=== PATIENT | male | born 1950 | race Caucasian/White ===

== ENCOUNTER 2019-09-20 01:25 | Outpatient (CLI) | payer MEDICARE, BC, SELFPAY ==
[2019-09-20 16:42] LABS: SARS-CoV-2 RNA PCR Negative
== END 2019-09-20 01:26 | disposition home or self-care (01) ==
LOC: ANHCOVIDDT 01:25
PROVIDERS: PCP Family Medicine; Visit Provider Internal Medicine Gastroenterology
DX: Z01.812 Encounter for preprocedural laboratory examination (principal); Z20.828 Contact with and (suspected) exposure to other viral communicable diseases
CPT/HCPCS: 87635; C9803; U0003

== ENCOUNTER 2019-09-23 01:17 | Day surgery (SDC) | payer MEDICARE, BC, SELFPAY ==
[2019-09-17 12:27] VITALS: BMI 26.0
[2019-09-23 06:32] VITALS: BMI 26.2
[2019-09-23 06:36] VITALS: BP 180/117; PULSE 69; RESP 16; TEMP 36.9; O2SAT 99
[2019-09-23] MEDS: LACTATED RINGERS 1,000 ML 150 ML IV CONT (06:44)
--- NOTE | 2019-09-23 06:48 | WPDANESEPPF ---
Anes - Initial Pre Proc Eval Procedure: Operation Date: 09/23/19 08:00 Proposed Procedures p Screening Colonoscopy - Prabhu Mendoza MD Date/Time: 09/23/19 06:48 Surgeon: Prabhu Mendoza MD Pre Op Diagnosis: Neoplasm Screening Patient Data Age: 69 Gender: M Height: 5 ft 9 in Weight: 80.6 kg Last Vital Signs Temp 36.9 C 09/23/19 06:36 Pulse 69 09/23/19 06:36 Resp 16 09/23/19 06:36 BP 180/117 H 09/23/19 06:36 Pulse Ox 99 09/23/19 06:36 Allergies Allergy/AdvReac Type Severity Reaction Status Date / Time Sulfa (Sulfonamide Allergy Unknown lip Verified 09/23/19 06:31 Antibiotics) swelling shellfish derived Allergy tingle in Verified 09/23/19 06:31 mouth and throat Home Medications Medication Instructions Recorded Confirmed Type albuterol sulfate 90 mcg/actuation 2 puff INHALATION Q4-6H PRN gm 07/28/19 09/17/19 History aerosol inhaler aspirin 81 mg tablet,delayed 81 mg PO DAILY 07/28/19 09/17/19 History release clonazepam 0.5 mg tablet 0.5 mg PO DAILY 07/28/19 09/17/19 History cyanocobalamin (vitamin B-12) 500 500 mcg PO DAILY 07/28/19 09/17/19 History mcg tablet desvenlafaxine succinate 100 mg 100 mg PO DAILY 07/28/19 09/17/19 History tablet,extended release 24 hr mirtazapine 30 mg tablet 30 mg PO DAILY 07/28/19 09/17/19 History niacin 500 mg tablet 500 mg PO DAILY 07/28/19 09/17/19 History Patient hx anesthesia problems: none Family hx anesthesia problems: none PMFSH Past Medical History Medical History Allergies Anxiety Asthma Depression Surgical History Surgical History H/O vasectomy Family History Family History Mother Cerebrovascular accident Father Malignant neoplasm of prostate Bladder cancer Grandparent Breast cancer Social History Social History Smoking status: Never smoker Alcohol intake: never Substance use: never Anes - Eval Final PreProcedure Day of Procedure 09/23/19 06:48 Patient weight: overweight Heart: regular rate and rhythm Lungs: clear to auscultation Airway: Mallampati scale class II Neurological: alert and oriented ASA classification: II Emergent: no Anesthetic plan: proceed Anesthesia type and monitoring: general GIVS and standard monitoring Informed Consent: The patient's anesthetic plan and its attendant risks and benefits were discussed with the patient/family/POA. Questions were solicited and answers provided to the satisfaction of the patient/family/POA.
--- NOTE | 2019-09-23 07:38 | PM.HPGS ---
History of Present Illness History of Present Illness Consent: Risks, benefits, and alternatives have been discussed and questions answered. Patient agrees to proceed with procedure. Chief complaint: Neoplasm Screening Narrative: Jd Stovall is a 69 year old male here for screening colonoscopy, had polyps previously. Review of Systems Constitutional: Constitutional: Denies headache(s) and Denies weakness Eyes: Eyes: Denies blurry vision ENT: Reports Normal hearing present, Denies headache(s) and Denies neck pain Cardiovascular: Cardiovascular: Denies chest pain and Denies dyspnea Respiratory: Respiratory: Denies dyspnea Gastrointestinal: Gastrointestinal: Reports no additional gastrointestinal complaints Genitourinary: Genitourinary: Denies dysuria Musculoskeletal: Musculoskeletal: Denies neck pain Integumentary/Breasts: Skin/Breast: Denies dry skin Neurologic: Reports Normal hearing present, Denies headache(s) and Denies weakness Psychiatric: Psychiatric: Denies anxiety Endocrine: Endocrine: Denies change in body appearance Hematologic/Lymphatic: Hematologic/Lymphatic: Denies easy bleeding Allergic/Immunologic: Allergic/Immunologic: Denies urticaria PMFSH Past Medical History Medical History Allergies Anxiety Asthma Depression Surgical History Surgical History H/O vasectomy Family History Family History Mother Cerebrovascular accident Father Malignant neoplasm of prostate Bladder cancer Grandparent Breast cancer Social History Social History Smoking status: Never smoker Alcohol intake: never Substance use: never Meds Home Medications and Allergies Home Medications Medication Instructions Recorded Confirmed Type albuterol sulfate 90 mcg/actuation 2 puff INHALATION Q4-6H PRN gm 07/28/19 09/17/19 History aerosol inhaler aspirin 81 mg tablet,delayed 81 mg PO DAILY 07/28/19 09/17/19 History release clonazepam 0.5 mg tablet 0.5 mg PO DAILY 07/28/19 09/17/19 History cyanocobalamin (vitamin B-12) 500 500 mcg PO DAILY 07/28/19 09/17/19 History mcg tablet desvenlafaxine succinate 100 mg 100 mg PO DAILY 07/28/19 09/17/19 History tablet,extended release 24 hr mirtazapine 30 mg tablet 30 mg PO DAILY 07/28/19 09/17/19 History niacin 500 mg tablet 500 mg PO DAILY 07/28/19 09/17/19 History Allergies Allergy/AdvReac Type Severity Reaction Status Date / Time Sulfa (Sulfonamide Allergy Unknown lip Verified 09/23/19 06:31 Antibiotics) swelling shellfish derived Allergy tingle in Verified 09/23/19 06:31 mouth and throat Vital Signs Vital Signs - 24 hr 09/23/19 06:36 Temperature 98.5 F Pulse Rate 69 Respiratory Rate 16 Blood Pressure 180/117 H Pulse Oximetry 99 Exam Const: General: comfortable and no acute distress HENMT: General nose exam: Normal nares present Eyes: General: appearance normal, both eyes and all related structures Neck: Neck: no JVD Resp: Auscultation: clear to auscultation bilaterally Cardio: Rate: regular rate Rhythm: regular rhythm GI: Inspection: non-distended GI Palp: Yes Soft to palpation Skin: General skin exam: normal color Neuro: General: gait normal Speech: normal speech Extrem: General: normal to inspection Psych: Mental Status: mental status grossly normal Assessment and Plan Assessment and plan (1) Hx of colonic polyp: Code(s): Z86.010 - Personal history of colonic polyps Status: Acute Assessment and Plan: will proceed with colonoscopy (2) Asthma: Code(s): J45.909 - Unspecified asthma, uncomplicated Status: Acute
[2019-09-23 08:19] VITALS: BP 137/77; PULSE 63; RESP 20; O2SAT 100
[2019-09-23 08:21] VITALS: BP 137/77; PULSE 63; RESP 20; O2SAT 100
[2019-09-23 08:29] VITALS: BP 135/73; PULSE 56; RESP 20; O2SAT 100
[2019-09-23 08:39] VITALS: BP 136/77; PULSE 55; RESP 18; O2SAT 100
== END 2019-09-23 08:45 | disposition home or self-care (01) ==
PROVIDERS: PCP Family Medicine; Visit Provider Internal Medicine Gastroenterology
PROC: 0DJD8ZZ Inspection of Lower Intestinal Tract, Via Natural or Artificial Opening Endoscopic (ICD-10-PCS; CPT 45378; principal; 2019-09-23 08:00)
DX: Z12.11 Encounter for screening for malignant neoplasm of colon (principal); D12.0 Benign neoplasm of cecum; D12.2 Benign neoplasm of ascending colon; D12.3 Benign neoplasm of transverse colon; D12.4 Benign neoplasm of descending colon; J45.909 Unspecified asthma, uncomplicated; F32.9 Major depressive disorder, single episode, unspecified; Z79.82 Long term (current) use of aspirin
CPT/HCPCS: 45385; 88305; J2704; J7120

== ENCOUNTER 2021-08-25 10:51 | Outpatient (CLI) | payer MEDICARE, BC, SELFPAY ==
[2021-08-25 18:48] LABS: Hematocrit 41.6 % (42.0-52.0); Hemoglobin 13.9 g/dL (14.0-18.0); Mean Corpuscular HGB Conc 33.4 g/dl (32-36); Mean Corpuscular Hemoglobin 32.3 pg (26-34); Mean Corpuscular Volume 96.7 fl (80-100); Mean Platelet Volume 11.1 fl (7.4-10.4); Platelet Count Result 186 k/mm3 (150-375); Red Cell Distribution Width 13.1 % (11.5-14.5); White Blood Count 7.4 K/mm3 (4.5-10.0)
[2021-08-25 19:45] LABS: Alanine Aminotransferase 22 U/L (6-50); Albumin Level 4.2 g/dL (3.5-5.1); Alkaline Phosphatase 89 U/L (38-126); Anion Gap 9 mmol/L (8-16); Aspartate Amino Transferase 34 U/L (17-59); Bilirubin,Total 0.4 mg/dL (0.2-1.3); Blood Urea Nitrogen 21 mg/dL (9-20); Calcium 8.5 mg/dL (8.4-10.2); Carbon Dioxide 26 mmol/L (22-30); Chloride 104 mmol/L (98-107); Cholesterol 223 mg/dL (0-200); Estimated Glomerular Filt Rate > 60; Glucose 98 mg/dL (65-110); HDL Direct 34 mg/dL; Potassium 4.1 mmol/L (3.4-5.0); Sodium 139 mmol/L (137-145); Triglycerides 330 mg/dL (<150)
[2021-08-25 19:57] LABS: LDL Cholesterol Direct 125 mg/dL
[2021-08-25 20:17] LABS: Prostate Specific Antigen 1.6 ng/mL (< OR = 4.0)
== END 2021-08-25 10:52 | disposition home or self-care (01) ==
PROVIDERS: PCP Family Medicine; Visit Provider Family Medicine
DX: F32.9 Major depressive disorder, single episode, unspecified (principal); F41.9 Anxiety disorder, unspecified; J45.909 Unspecified asthma, uncomplicated; Z79.899 Other long term (current) drug therapy; T78.40XA Allergy, unspecified, initial encounter; Z12.5 Encounter for screening for malignant neoplasm of prostate
CPT/HCPCS: 36415; 80053; 80061; 84153; 85027; G0103

== ENCOUNTER 2021-11-23 00:19 | Day surgery (SDC) | payer MEDICARE, OTHER, SELFPAY ==
[2021-11-14 13:38] VITALS: BMI 27.3
[2021-11-23 06:13] VITALS: PULSE 70; RESP 16; TEMP 36.6; O2SAT 99; BMI 27.4
[2021-11-23] MEDS: LACTATED RINGERS 1,000 ML 150 ML IV CONT (06:25)
--- NOTE | 2021-11-23 07:25 | WPDANESEPPF ---
Anes - Initial Pre Proc Eval Procedure: Operation Date: 11/23/21 07:30 Proposed Procedures p Screening Colonoscopy - Prabhu Mendoza MD Date/Time: 11/23/21 07:25 Surgeon: Prabhu Mendoza MD Pre Op Diagnosis: hx colon polyps Patient Data Age: 71 Gender: M Height: 1.75 m Weight: 84.3 kg Last Vital Signs Temp 97.9 F 11/23/21 06:13 Pulse 70 11/23/21 06:13 Resp 16 11/23/21 06:13 Pulse Ox 99 11/23/21 06:13 O2 Del Method Room Air 11/23/21 06:13 Allergies Allergy/AdvReac Type Severity Reaction Status Date / Time Sulfa (Sulfonamide Allergy Unknown lip Verified 11/23/21 06:12 Antibiotics) swelling shellfish derived Allergy tingle in Verified 11/23/21 06:12 mouth and throat Home Medications Medication Instructions Recorded Confirmed Type albuterol sulfate 90 mcg/actuation 2 puff inhalation Q4-6H PRN 07/28/19 11/23/21 History aerosol inhaler (ProAir HFA) Shortness Of Breath aspirin 81 mg tablet,delayed 81 mg PO DAILY 07/28/19 11/23/21 History release (Adult Aspirin Regimen) clonazepam 0.5 mg tablet (Klonopin) 0.5 mg PO DAILY 07/28/19 11/23/21 History mirtazapine 30 mg tablet 30 mg PO DAILY 07/28/19 11/23/21 History Ltheanine 100 mg BYMOUTH sleep 08/25/21 11/23/21 History Zquill 1 caplet [facility] sleep 08/25/21 11/23/21 History desvenlafaxine succinate 100 mg 100 mg PO DAILY 08/25/21 11/23/21 History tablet,extended release 24 hr (Pristiq) fluticasone propionate 50 2 spray intranasal DAILY 08/25/21 11/23/21 History mcg/actuation nasal spray,suspension magnesium hydroxide 400 mg/5 mL 400 mg PO QHS 08/25/21 11/23/21 History oral suspension glycine 500 mg capsule 2,000 mg PO 11/14/21 11/23/21 History multivitamin 1 tablet PO DAILY 08/08/22 08/17/22 History zolpidem 5 mg tablet 5 mg PO PRN 11/14/21 11/23/21 History Patient hx anesthesia problems: none Family hx anesthesia problems: none Results Review: All pre-operative results and documents have been reviewed as part of the pre-operative evaluation. [facility] Past Medical History Medical History (Updated 08/28/21 @ 23:31 by Tim Tomlin MD) Allergies Anxiety Asthma Depression Surgical History Surgical History (System 12/14/20 @ 09:44 by Carol Luque) H/O vasectomy Family History Family History (System 12/14/20 @ 09:44 by Carol Luque) Mother Cerebrovascular accident Father Malignant neoplasm of prostate Bladder cancer Grandparent Breast cancer Mother Hypertension Cerebrovascular accident Carcinoma of colon Father Family history of malignant neoplasm of urinary bladder Social History Social History (System 12/14/20 @ 09:44 by Carol Luque) Smoking status: Current every day smoker Tobacco type: cigars Alcohol intake: never Substance use: never Substance use type: does not use Living arrangements: with family Spiritual care concerns: No Anes - Eval Final PreProcedure Day of Procedure 11/23/21 07:25 Patient weight: normal Heart: regular rate and rhythm Lungs: clear to auscultation Airway: Mallampati scale class II Neurological: alert and oriented Last oral intake: >/= 8 hours ASA classification: II Emergent: no Anesthetic plan: proceed Anesthesia type and monitoring: general GIVS and standard monitoring Results Review: All pre-operative results and documents have been reviewed as part of the pre-operative evaluation. Informed Consent: The patient's anesthetic plan and its attendant risks and benefits were discussed with the patient/family/POA. Questions were solicited and answers provided to the satisfaction of the patient/family/POA.
--- NOTE | 2021-11-23 07:31 | PM.HPGS ---
History of Present Illness History of Present Illness Consent: Risks, benefits, and alternatives have been discussed and questions answered. Patient agrees to proceed with procedure. Chief complaint: hx colon polyps Narrative: Jd Stovall is a 71 year old male with several colon polyps removed in 2019 Review of Systems Constitutional: Constitutional: Denies headache(s) and Denies weakness Eyes: Eyes: Denies blurry vision ENT: Reports Normal hearing present, Denies headache(s) and Denies neck pain Cardiovascular: Cardiovascular: Denies chest pain and Denies dyspnea Respiratory: Respiratory: Denies dyspnea Gastrointestinal: Gastrointestinal: Reports no additional gastrointestinal complaints Genitourinary: Genitourinary: Denies dysuria Musculoskeletal: Musculoskeletal: Denies neck pain Integumentary/Breasts: Skin/Breast: Denies dry skin Neurologic: Reports Normal hearing present, Denies headache(s) and Denies weakness Psychiatric: Psychiatric: Denies anxiety Endocrine: Endocrine: Denies change in body appearance Hematologic/Lymphatic: Hematologic/Lymphatic: Denies easy bleeding Allergic/Immunologic: Allergic/Immunologic: Denies urticaria PMFSH Past Medical History Medical History (Updated 08/28/21 @ 23:31 by Tim Tomlin MD) Allergies Anxiety Asthma Depression Surgical History Surgical History (System 12/14/20 @ 09:44 by Carol Luque) H/O vasectomy Family History Family History (System 12/14/20 @ 09:44 by Carol Luque) Mother Cerebrovascular accident Father Malignant neoplasm of prostate Bladder cancer Grandparent Breast cancer Mother Hypertension Cerebrovascular accident Carcinoma of colon Father Family history of malignant neoplasm of urinary bladder Social History Social History (System 12/14/20 @ 09:44 by Carol Luque) Smoking status: Current every day smoker Tobacco type: cigars Alcohol intake: never Substance use: never Substance use type: does not use Living arrangements: with family Spiritual care concerns: No Meds Home Medications and Allergies Home Medications Medication Instructions Recorded Confirmed Type albuterol sulfate 90 mcg/actuation 2 puff inhalation Q4-6H PRN 07/28/19 11/23/21 History aerosol inhaler (ProAir HFA) Shortness Of Breath aspirin 81 mg tablet,delayed 81 mg PO DAILY 07/28/19 11/23/21 History release (Adult Aspirin Regimen) clonazepam 0.5 mg tablet (Klonopin) 0.5 mg PO DAILY 07/28/19 11/23/21 History mirtazapine 30 mg tablet 30 mg PO DAILY 07/28/19 11/23/21 History Ltheanine 100 mg BYMOUTH sleep 08/25/21 11/23/21 History Zquill 1 caplet [facility] sleep 08/25/21 11/23/21 History desvenlafaxine succinate 100 mg 100 mg PO DAILY 08/25/21 11/23/21 History tablet,extended release 24 hr (Pristiq) fluticasone propionate 50 2 spray intranasal DAILY 08/25/21 11/23/21 History mcg/actuation nasal spray,suspension magnesium hydroxide 400 mg/5 mL 400 mg PO QHS 08/25/21 11/23/21 History oral suspension glycine 500 mg capsule 2,000 mg PO HS 11/14/21 11/23/21 History multivitamin 1 tablet PO DAILY 11/14/21 11/23/21 History zolpidem 5 mg tablet 5 mg PO PRN 11/14/21 11/23/21 History Allergies Allergy/AdvReac Type Severity Reaction Status Date / Time Sulfa (Sulfonamide Allergy Unknown lip Verified 11/23/21 06:12 Antibiotics) swelling shellfish derived Allergy tingle in Verified 11/23/21 06:12 mouth and throat Vital Signs Vital Signs - 24 hr 11/23/21 06:13 Temperature 97.9 F Pulse Rate 70 Respiratory Rate 16 Pulse Oximetry 99 Oxygen Delivery Room Air Exam Const: General: comfortable and no acute distress HENMT: General nose exam: Normal nares present Eyes: General: appearance normal, both eyes and all related structures Neck: Neck: no JVD Resp: Auscultation: clear to auscultation bilaterally Cardio: Rate: regular rate
[2021-11-23 08:06] VITALS: BP 112/66; PULSE 64; RESP 15; O2SAT 99
[2021-11-23 08:16] VITALS: BP 127/79; PULSE 58; RESP 16; O2SAT 99
[2021-11-23 08:26] VITALS: BP 136/90; PULSE 58; RESP 15; O2SAT 100
== END 2021-11-23 08:34 | disposition home or self-care (01) ==
PROVIDERS: PCP Family Medicine; Visit Provider Internal Medicine Gastroenterology
PROC: 0DJD8ZZ Inspection of Lower Intestinal Tract, Via Natural or Artificial Opening Endoscopic (ICD-10-PCS; CPT 45378; principal; 2021-11-23 07:30)
DX: Z12.11 Encounter for screening for malignant neoplasm of colon (principal); D12.2 Benign neoplasm of ascending colon; D12.3 Benign neoplasm of transverse colon; K64.8 Other hemorrhoids; J45.909 Unspecified asthma, uncomplicated; F41.9 Anxiety disorder, unspecified; F32.A Depression, unspecified; F17.290 Nicotine dependence, other tobacco product, uncomplicated; Z79.51 Long term (current) use of inhaled steroids; Z79.82 Long term (current) use of aspirin
CPT/HCPCS: 45380; 45385; 45381; 88305; J2704; J7120

== ENCOUNTER 2021-12-14 08:13 | Outpatient (CLI) | payer MEDICARE, OTHER, SELFPAY ==
[2021-12-14 19:22] LABS: Iron 52 ug/dL (49-181)
[2021-12-14 19:37] LABS: Percent Iron Saturation 12 % (20-50)
[2021-12-14 19:41] LABS: Basophils Absolute Auto 0.1 K/mm3 (0.0-0.1); Basophils Percent Auto 1.4 % (0.2-1.2); Eosinophils Absolute Auto 0.2 K/mm3 (0-0.3); Eosinophils Percent Auto 2.9 % (0-4.4); Hematocrit 38.4 % (42.0-52.0); Hemoglobin 12.1 g/dL (14.0-18.0); Immature Granulocyte Absolute 0.02 K/mm3 (0.00-0.031); Immature Granulocyte Percent A 0.3 % (0-0.5); Lymphocytes Absolute Auto 1.86 K/mm3 (0.9-3.2); Lymphocytes Percent Auto 28.7 % (18.3-44.2); Mean Corpuscular HGB Conc 31.5 g/dl (32-36); Mean Corpuscular Hemoglobin 31.1 pg (26-34); Mean Corpuscular Volume 98.7 fl (80-100); Mean Platelet Volume 10.9 fl (7.4-10.4); Monocytes Absolute Auto 0.7 K/mm3 (0.1-0.6); Monocytes Percent Auto 11.1 % (2.6-8.5); Neutrophils Absolute Auto 3.6 K/mm3 (1.3-6.7); Neutrophils Percent Auto 55.6 % (45.5-73.1); Platelet Count Result 214 k/mm3 (150-375); Red Blood Count 3.89 M/mm3 (4.6-6.20); Red Cell Distribution Width 13.4 % (11.5-14.5); White Blood Count 6.5 K/mm3 (4.5-10.0)
[2021-12-14 20:01] LABS: Folic Acid 18.1 ng/mL (2.76->20)
== END 2021-12-14 08:14 | disposition home or self-care (01) ==
LOC: ANHBWCLAB 08:17
PROVIDERS: PCP Family Medicine; Visit Provider Family Medicine
DX: D64.9 Anemia, unspecified (principal)
CPT/HCPCS: 36415; 82607; 82746; 83540; 83550; 85025

== ENCOUNTER 2022-03-10 07:29 | Outpatient (CLI) | payer MEDICARE, OTHER, SELFPAY ==
[2022-03-10 19:05] LABS: Basophils Absolute Auto 0.1 K/mm3 (0.0-0.1); Basophils Percent Auto 0.7 % (0.2-1.2); Eosinophils Absolute Auto 0.2 K/mm3 (0-0.3); Eosinophils Percent Auto 2.7 % (0-4.4); Hematocrit 48.5 % (42.0-52.0); Hemoglobin 15.7 g/dL (14.0-18.0); Immature Granulocyte Absolute 0.02 K/mm3 (0.00-0.031); Immature Granulocyte Percent A 0.3 % (0-0.5); Lymphocytes Absolute Auto 1.84 K/mm3 (0.9-3.2); Lymphocytes Percent Auto 26.2 % (18.3-44.2); Mean Corpuscular HGB Conc 32.4 g/dl (32-36); Mean Corpuscular Hemoglobin 30.2 pg (26-34); Mean Corpuscular Volume 93.3 fl (80-100); Mean Platelet Volume 10.8 fl (7.4-10.4); Monocytes Absolute Auto 0.6 K/mm3 (0.1-0.6); Monocytes Percent Auto 8.4 % (2.6-8.5); Neutrophils Absolute Auto 4.3 K/mm3 (1.3-6.7); Neutrophils Percent Auto 61.7 % (45.5-73.1); Platelet Count Result 194 k/mm3 (150-375); Red Cell Distribution Width 14.2 % (11.5-14.5)
== END 2022-03-10 07:30 | disposition home or self-care (01) ==
PROVIDERS: PCP Family Medicine; Visit Provider Family Medicine
DX: T78.40XA Allergy, unspecified, initial encounter (principal)
CPT/HCPCS: 36415; 85025

== ENCOUNTER 2022-08-28 07:33 | Outpatient (CLI) | payer MEDICARE, OTHER, SELFPAY ==
[2022-08-28 18:44] LABS: Basophils Absolute Auto 0.1 K/mm3 (0.0-0.1); Basophils Percent Auto 0.9 % (0.2-1.2); Eosinophils Absolute Auto 0.2 K/mm3 (0-0.3); Eosinophils Percent Auto 3.5 % (0-4.4); Hematocrit 46.5 % (42.0-52.0); Hemoglobin 15.1 g/dL (14.0-18.0); Immature Granulocyte Absolute 0.02 K/mm3 (0.00-0.031); Immature Granulocyte Percent A 0.4 % (0-0.5); Lymphocytes Absolute Auto 1.47 K/mm3 (0.9-3.2); Mean Corpuscular HGB Conc 32.5 g/dl (32-36); Mean Corpuscular Volume 98.5 fl (80-100); Mean Platelet Volume 10.7 fl (7.4-10.4); Monocytes Absolute Auto 0.5 K/mm3 (0.1-0.6); Monocytes Percent Auto 9.5 % (2.6-8.5); Neutrophils Absolute Auto 3.4 K/mm3 (1.3-6.7); Neutrophils Percent Auto 59.7 % (45.5-73.1); Platelet Count Result 179 k/mm3 (150-375); Red Blood Count 4.72 M/mm3 (4.6-6.20); Red Cell Distribution Width 12.7 % (11.5-14.5); White Blood Count 5.7 K/mm3 (4.5-10.0)
[2022-08-28 19:12] LABS: Alanine Aminotransferase 32 U/L (6-50); Albumin Level 4.6 g/dL (3.5-5.1); Alkaline Phosphatase 80 U/L (38-126); Anion Gap 7 mmol/L (8-16); Aspartate Amino Transferase 65 U/L (17-59); Blood Urea Nitrogen 19 mg/dL (9-20); Calcium 8.9 mg/dL (8.4-10.2); Carbon Dioxide 31 mmol/L (22-30); Chloride 102 mmol/L (98-107); Cholesterol 254 mg/dL (0-200); Estimated Glomerular Filt Rate > 60; Glucose 88 mg/dL (65-110); HDL Direct 37 mg/dL; Potassium 4.1 mmol/L (3.4-5.0); Sodium 140 mmol/L (137-145); Triglycerides 208 mg/dL (<150)
[2022-08-28 19:17] LABS: Appearance Urine Clear (Clear); Bacteria Urine None Seen /hpf; Bilirubin Urine Negative (Negative); Blood Urine Negative (Negative); Color Urine Yellow (Yellow); Glucose Urine UA Negative (Negative); Ketones Urine Negative (Negative); Leukocyte Esterase Ur Negative LEU/UL (NEGATIVE); Nitrate Urine Negative (Negative); Non Pathogenic Casts 0-2; Protein Urine Trace mg/dL (Negative); RBC Urine 0-2 /hpf (0-2); Specific Grav Ur 1.018 (1.001-1.035); Squamous Epithelial Cell Urine None seen /hpf (Few); Urobilinogen Urine 0.2 mg/dL (<2.0); WBC Urine 0-5 /hpf (0-3)
[2022-08-28 19:22] LABS: LDL Cholesterol Direct 150 mg/dL
[2022-08-28 19:25] LABS: Add Urine Microscopic? YES
[2022-08-28 19:34] LABS: Prostate Specific Antigen 2.3 ng/mL (< OR = 4.0)
== END 2022-08-28 07:34 | disposition home or self-care (01) ==
PROVIDERS: PCP Family Medicine; Visit Provider Nurse Practitioner
DX: T78.40XA Allergy, unspecified, initial encounter (principal); D64.9 Anemia, unspecified; Z79.899 Other long term (current) drug therapy; Z12.5 Encounter for screening for malignant neoplasm of prostate; F41.9 Anxiety disorder, unspecified; J45.909 Unspecified asthma, uncomplicated; R35.0 Frequency of micturition
CPT/HCPCS: 36415; 80053; 80061; 81001; 84153; 85025; G0103

== ENCOUNTER 2022-09-13 00:39 | Day surgery (SDC) | payer MEDICARE, OTHER, SELFPAY ==
[2022-09-06 14:08] VITALS: BMI 26.5
[2022-09-13 06:26] VITALS: BP 169/86; PULSE 74; RESP 18; TEMP 36.2; O2SAT 100
[2022-09-13] MEDS: LACTATED RINGERS 1,000 ML 150 ML IV CONT (06:40)
--- NOTE | 2022-09-13 07:10 | WPDANESEPPF ---
Anes - Initial Pre Proc Eval Procedure: Operation Date: 09/13/22 07:30 Proposed Procedures p Colonoscopy - Prabhu Mendoza MD Date/Time: 09/13/22 07:10 Surgeon: Prabhu Mendoza MD Pre Op Diagnosis: hx colon polyps Patient Data Age: 72 Gender: M Height: 1.78 m Weight: 85.9 kg Last Vital Signs Temp 36.2 C L 09/13/22 06:26 Pulse 74 09/13/22 06:26 Resp 18 09/13/22 06:26 BP 169/86 H 09/13/22 06:26 Pulse Ox 100 09/13/22 06:26 O2 Del Method Room Air 09/13/22 06:26 Allergies Allergy/AdvReac Type Severity Reaction Status Date / Time Sulfa (Sulfonamide Allergy Unknown lip Verified 09/13/22 06:24 Antibiotics) swelling shellfish derived Allergy tingle in Verified 09/13/22 06:24 mouth and throat Home Medications Medication Instructions Recorded Confirmed Type albuterol sulfate 90 mcg/actuation 2 puff inhalation Q4-6H PRN 07/28/19 09/06/22 History aerosol inhaler (ProAir HFA) Shortness Of Breath aspirin 81 mg tablet,delayed 81 mg PO DAILY 07/28/19 09/06/22 History release (Adult Aspirin Regimen) clonazepam 0.5 mg tablet (Klonopin) 0.5 mg PO DAILY 07/28/19 09/06/22 History mirtazapine 30 mg tablet (Remeron) 30 mg PO DAILY 07/28/19 09/06/22 History Ltheanine 100 mg BYMOUTH HS sleep 08/25/21 09/06/22 History desvenlafaxine succinate 100 mg 100 mg PO DAILY 08/25/21 09/06/22 History tablet,extended release 24 hr (Pristiq) fluticasone propionate 50 2 spray intranasal DAILY 08/25/21 09/06/22 History mcg/actuation nasal spray,suspension glycine 500 mg capsule 2,000 mg PO HS 11/14/21 09/06/22 History multivitamin 1 tablet PO DAILY 11/14/21 09/06/22 History ferrous sulfate 325 mg (65 mg 325 mg PO DAILY #90 tabs 06/13/22 09/06/22 Rx iron) tablet magnesium 200 mg tablet 400 mg PO DAILY 09/06/22 09/06/22 History Patient hx anesthesia problems: none Family hx anesthesia problems: none Results Review: All pre-operative results and documents have been reviewed as part of the pre-operative evaluation. [facility] Past Medical History Medical History (Updated 08/28/22 @ 07:36 by PARTH Crespo) Allergies Anxiety Asthma Depression Surgical History Surgical History H/O vasectomy Family History Family History Mother Cerebrovascular accident Father Malignant neoplasm of prostate Bladder cancer Grandparent Breast cancer Mother Hypertension Cerebrovascular accident Carcinoma of colon Father Family history of malignant neoplasm of urinary bladder Social History Social History Smoking status: Current every day smoker Tobacco type: cigars Alcohol intake: never Substance use: never Substance use type: does not use Lack of Transportation: No Lack of Food: Never True Concerned About Future Housing: No Difficulty Paying Gas/Electric Bills: No Difficulty Paying for Meds: No Currently Unemployed: No Education: Bachelor's Degree Difficulty w/ Childcare or Family Care: No Living arrangements: with family Spiritual care concerns: No Anes - Eval Final PreProcedure Day of Procedure 09/13/22 07:10 Patient weight: normal Heart: regular rate and rhythm Lungs: clear to auscultation Airway: Mallampati scale class II Neurological: alert and oriented Last oral intake: >/= 8 hours ASA classification: II Emergent: no Anesthetic plan: proceed Anesthesia type and monitoring: general GIVS and standard monitoring Results Review: All pre-operative results and documents have been reviewed as part of the pre-operative evaluation. Informed Consent: The patient's anesthetic plan and its attendant risks and benefits were discussed with the patient/family/POA. Questions were solicited and answers provided to the satisfac
--- NOTE | 2022-09-13 07:30 | PM.HPGS ---
History of Present Illness History of Present Illness Consent: Risks, benefits, and alternatives have been discussed and questions answered. Patient agrees to proceed with procedure. Chief complaint: hx colon polyps Narrative: Jd Stovall is a 72 year old male with large polyps removed 11/2021 Review of Systems Constitutional: Constitutional: Denies headache(s) and Denies weakness Eyes: Eyes: Denies blurry vision ENT: Reports Normal hearing present, Denies headache(s) and Denies neck pain Cardiovascular: Cardiovascular: Denies chest pain and Denies dyspnea Respiratory: Respiratory: Denies dyspnea Gastrointestinal: Gastrointestinal: Reports no additional gastrointestinal complaints Genitourinary: Genitourinary: Denies dysuria Musculoskeletal: Musculoskeletal: Denies neck pain Integumentary/Breasts: Skin/Breast: Denies dry skin Neurologic: Reports Normal hearing present, Denies headache(s) and Denies weakness Psychiatric: Psychiatric: Denies anxiety Endocrine: Endocrine: Denies change in body appearance Hematologic/Lymphatic: Hematologic/Lymphatic: Denies easy bleeding Allergic/Immunologic: Allergic/Immunologic: Denies urticaria PMFSH Past Medical History Medical History (Updated 08/28/22 @ 07:36 by PARTH Crespo) Allergies Anxiety Asthma Depression Surgical History Surgical History H/O vasectomy Family History Family History Mother Cerebrovascular accident Father Malignant neoplasm of prostate Bladder cancer Grandparent Breast cancer Mother Hypertension Cerebrovascular accident Carcinoma of colon Father Family history of malignant neoplasm of urinary bladder Social History Social History Smoking status: Current every day smoker Tobacco type: cigars Alcohol intake: never Substance use: never Substance use type: does not use Lack of Transportation: No Lack of Food: Never True Concerned About Future Housing: No Difficulty Paying Gas/Electric Bills: No Difficulty Paying for Meds: No Currently Unemployed: No Education: Bachelor's Degree Difficulty w/ Childcare or Family Care: No Living arrangements: with family Spiritual care concerns: No Meds Home Medications and Allergies Home Medications Medication Instructions Recorded Confirmed Type albuterol sulfate 90 mcg/actuation 2 puff inhalation Q4-6H PRN 07/28/19 09/06/22 History aerosol inhaler (ProAir HFA) Shortness Of Breath aspirin 81 mg tablet,delayed 81 mg PO DAILY 07/28/19 09/06/22 History release (Adult Aspirin Regimen) clonazepam 0.5 mg tablet (Klonopin) 0.5 mg PO DAILY 07/28/19 09/06/22 History mirtazapine 30 mg tablet (Remeron) 30 mg PO DAILY 07/28/19 09/06/22 History Ltheanine 100 mg BYMOUTH HS sleep 08/25/21 09/06/22 History desvenlafaxine succinate 100 mg 100 mg PO DAILY 08/25/21 09/06/22 History tablet,extended release 24 hr (Pristiq) fluticasone propionate 50 2 spray intranasal DAILY 08/25/21 09/06/22 History mcg/actuation nasal spray,suspension glycine 500 mg capsule 2,000 mg PO HS 11/14/21 09/06/22 History multivitamin 1 tablet PO DAILY 11/14/21 09/06/22 History ferrous sulfate 325 mg (65 mg 325 mg PO DAILY #90 tabs 06/13/22 09/06/22 Rx iron) tablet magnesium 200 mg tablet 400 mg PO DAILY 09/06/22 09/06/22 History Allergies Allergy/AdvReac Type Severity Reaction Status Date / Time Sulfa (Sulfonamide Allergy Unknown lip Verified 09/13/22 06:24 Antibiotics) swelling shellfish derived Allergy tingle in Verified 09/13/22 06:24 mouth and throat Vital Signs Vital Signs - 24 hr 09/13/22 06:26 Temperature 97.1 F L Pulse Rate 74 Respiratory Rate 18 Blood Pressure 169/86 H Pulse Oximetry 100 Oxygen Delivery Room Air Exam Const:
[2022-09-13 07:48] VITALS: BP 110/52; PULSE 68; RESP 15; O2SAT 98
[2022-09-13 07:58] VITALS: BP 116/62; PULSE 63; RESP 17; O2SAT 98
[2022-09-13 08:08] VITALS: BP 132/76; PULSE 68; RESP 20; O2SAT 99
== END 2022-09-13 08:16 | disposition home or self-care (01) ==
PROVIDERS: PCP Family Medicine; Visit Provider Internal Medicine Gastroenterology
PROC: 0DJD8ZZ Inspection of Lower Intestinal Tract, Via Natural or Artificial Opening Endoscopic (ICD-10-PCS; CPT 45378; principal; 2022-09-13 07:30)
DX: Z12.11 Encounter for screening for malignant neoplasm of colon (principal); D12.4 Benign neoplasm of descending colon; K64.8 Other hemorrhoids; J45.909 Unspecified asthma, uncomplicated; F41.9 Anxiety disorder, unspecified; F32.A Depression, unspecified; Z79.51 Long term (current) use of inhaled steroids; Z79.82 Long term (current) use of aspirin; F17.290 Nicotine dependence, other tobacco product, uncomplicated
CPT/HCPCS: 45385; 88305; J2704; J7120

== ENCOUNTER 2023-02-27 07:02 | Outpatient (CLI) | payer MEDICARE, OTHER, SELFPAY ==
[2023-02-27 19:42] LABS: Appearance Urine Clear (Clear); Bilirubin Urine Negative (Negative); Blood Urine Negative (Negative); Color Urine Yellow (Yellow); Glucose Urine UA Negative (Negative); Ketones Urine Negative (Negative); Leukocyte Esterase Ur Negative LEU/UL (Negative); Nitrate Urine Negative (Negative); Protein Urine Negative (Negative); Specific Grav Ur 1.013 (1.001-1.035); Urobilinogen Urine 0.2 mg/dL (<2.0)
[2023-02-27 19:51] LABS: Basophils Absolute Auto 0.1 K/mm3 (0.0-0.1); Basophils Percent Auto 1.1 % (0.2-1.2); Eosinophils Absolute Auto 0.2 K/mm3 (0-0.3); Eosinophils Percent Auto 2.9 % (0-4.4); Hemoglobin 14.9 g/dL (14.0-18.0); Immature Granulocyte Absolute 0.01 K/mm3 (0.00-0.031); Immature Granulocyte Percent A 0.2 % (0-0.5); Lymphocytes Absolute Auto 1.66 K/mm3 (0.9-3.2); Mean Corpuscular HGB Conc 33.1 g/dl (32-36); Mean Corpuscular Hemoglobin 32.7 pg (26-34); Mean Corpuscular Volume 98.9 fl (80-100); Mean Platelet Volume 10.7 fl (7.4-10.4); Monocytes Absolute Auto 0.6 K/mm3 (0.1-0.6); Monocytes Percent Auto 9.6 % (2.6-8.5); Neutrophils Absolute Auto 4.1 K/mm3 (1.3-6.7); Neutrophils Percent Auto 61.2 % (45.5-73.1); Platelet Count Result 196 k/mm3 (150-375); Red Blood Count 4.55 M/mm3 (4.6-6.20); Red Cell Distribution Width 13.1 % (11.5-14.5); White Blood Count 6.7 K/mm3 (4.5-10.0)
[2023-02-27 19:52] LABS: Add Urine Microscopic? YES
[2023-02-27 20:05] LABS: Vitamin D 25 Hydroxy 41.5 ng/mL
[2023-02-27 20:37] LABS: Erythrocyte Sedimentation Rate 14 mm/hr (0-20)
[2023-02-27 21:40] LABS: LDL Cholesterol Direct 104 mg/dL
[2023-02-27 21:53] LABS: Alanine Aminotransferase 23 U/L (6-50); Albumin Level 4.3 g/dL (3.5-5.1); Alkaline Phosphatase 78 U/L (38-126); Anion Gap 8 mmol/L (8-16); Aspartate Amino Transferase 47 U/L (17-59); Bilirubin,Total 0.7 mg/dL (0.2-1.3); Blood Urea Nitrogen 18 mg/dL (9-20); CRP < 0.5 mg/dL (<1.0); Calcium 8.9 mg/dL (8.4-10.2); Carbon Dioxide 30 mmol/L (22-30); Chloride 102 mmol/L (98-107); Cholesterol 211 mg/dL (0-200); Estimated Glomerular Filt Rate > 60; Glucose 83 mg/dL (65-110); HDL Direct 35 mg/dL; Potassium 3.9 mmol/L (3.4-5.0); Sodium 140 mmol/L (137-145); Triglycerides 277 mg/dL (<150)
[2023-02-27 22:34] LABS: Folic Acid 17.6 ng/mL (2.76->20)
[2023-02-28 10:51] LABS: Prostate Specific Antigen 1.8 ng/mL (< OR = 4.0)
[2023-03-02 11:52] LABS: Homocysteine 11.8 umol/L (<11.4)
[2023-03-03 07:01] LABS: Insulin Level Total 11.6 uIU/mL (<=18.4)
== END 2023-02-27 07:03 | disposition home or self-care (01) ==
LOC: ANHBWCLAB 07:10
PROVIDERS: PCP Family Medicine
DX: F34.1 Dysthymic disorder (principal); E78.5 Hyperlipidemia, unspecified; E55.9 Vitamin D deficiency, unspecified; Z12.5 Encounter for screening for malignant neoplasm of prostate
CPT/HCPCS: 36415; 80053; 80061; 81001; 82306; 82607; 82746; 83090; 83525; 84153; 84443; 85025; 85652; 86140; G0103

== ENCOUNTER 2023-09-10 08:04 | Outpatient (CLI) | payer MEDICARE, OTHER, SELFPAY ==
[2023-09-10 18:35] LABS: Basophils Absolute Auto 0.1 K/mm3 (0.0-0.1); Eosinophils Absolute Auto 0.2 K/mm3 (0-0.3); Eosinophils Percent Auto 2.8 % (0-4.4); Hematocrit 45.5 % (42.0-52.0); Hemoglobin 14.9 g/dL (14.0-18.0); Immature Granulocyte Absolute 0.03 K/mm3 (0.00-0.031); Immature Granulocyte Percent A 0.5 % (0-0.5); Lymphocytes Absolute Auto 1.36 K/mm3 (0.9-3.2); Lymphocytes Percent Auto 22.3 % (18.3-44.2); Mean Corpuscular HGB Conc 32.7 g/dl (32-36); Mean Corpuscular Hemoglobin 31.9 pg (26-34); Mean Corpuscular Volume 97.4 fl (80-100); Mean Platelet Volume 10.5 fl (7.4-10.4); Monocytes Absolute Auto 0.5 K/mm3 (0.1-0.6); Neutrophils Percent Auto 65.4 % (45.5-73.1); Platelet Count Result 189 k/mm3 (150-375); Red Blood Count 4.67 M/mm3 (4.6-6.20); Red Cell Distribution Width 13.2 % (11.5-14.5); White Blood Count 6.1 K/mm3 (4.5-10.0)
[2023-09-10 19:26] LABS: Alanine Aminotransferase 22 U/L (6-50); Albumin Level 4.4 g/dL (3.5-5.1); Alkaline Phosphatase 82 U/L (38-126); Anion Gap 5 mmol/L (4-12); Aspartate Amino Transferase 33 U/L (17-59); Bilirubin,Total 0.7 mg/dL (0.2-1.3); Blood Urea Nitrogen 18 mg/dL (9-20); Calcium 8.8 mg/dL (8.4-10.2); Carbon Dioxide 29 mmol/L (22-30); Chloride 105 mmol/L (98-107); Cholesterol 208 mg/dL (0-200); Estimated Glomerular Filt Rate > 60; Glucose 100 mg/dL (65-110); HDL Direct 35 mg/dL; Potassium 3.7 mmol/L (3.4-5.0); Sodium 139 mmol/L (137-145); Triglycerides 321 mg/dL (<150)
[2023-09-10 19:37] LABS: LDL Cholesterol Direct 101 mg/dL
[2023-09-10 19:55] LABS: Prostate Specific Antigen 2.1 ng/mL (< OR = 4.0)
== END 2023-09-10 08:05 | disposition home or self-care (01) ==
PROVIDERS: PCP Nurse Practitioner Adult Health; Visit Provider Nurse Practitioner Adult Health
DX: Z12.5 Encounter for screening for malignant neoplasm of prostate (principal); D64.9 Anemia, unspecified; E78.5 Hyperlipidemia, unspecified
CPT/HCPCS: 36415; 80053; 80061; 84153; 84443; 85025; G0103

== ENCOUNTER 2023-11-11 15:37 | Emergency (ER) | payer MEDICARE, BC, SELFPAY ==
[2023-11-11 15:43] VITALS: BP 130/83; PULSE 83; RESP 16; TEMP 37.2; O2SAT 99
[2023-11-11 15:51] VITALS: BP 130/83; PULSE 83; RESP 16; TEMP 37.2; O2SAT 99
[2023-11-11] MEDS: TETANUS,DIPHTHERIA,AC PERTUSSIS ADULT (0.5 ML) BOOSTRIX IM (15:52)
--- NOTE | 2023-11-11 17:55 | ED.GENADULT ---
HPI - General Adult General Chief complaint: Wound/Laceration Stated complaint: Laceration to Right Arm Source: patient Mode of arrival: ambulatory Limitations: no limitations History of Present Illness HPI narrative: Patient presents for evaluation after sustaining laceration to the proximal right forearm that occurred just prior to arrival. He indicates he was working on the roof of a shed. A piece of metal cut him in the proximal right forearm. Denies any significant pain. No loss of range of motion. No paresthesias. He has not taken any medication for symptoms. He is not diabetic. Date of last tetanus unknown. Related Data Home Medications Medication Instructions Recorded Confirmed aspirin 81 mg tablet,delayed 81 mg PO DAILY 07/28/19 11/11/23 release (Adult Aspirin Regimen) clonazepam 0.5 mg tablet (Klonopin) 0.5 mg PO DAILY 07/28/19 11/11/23 mirtazapine 30 mg tablet (Remeron) 30 mg PO DAILY 07/28/19 11/11/23 Ltheanine 100 mg BYMOUTH HS sleep 08/25/21 11/11/23 desvenlafaxine succinate 100 mg 100 mg PO DAILY 08/25/21 11/11/23 tablet,extended release 24 hr (Pristiq) fluticasone propionate 50 2 spray intranasal DAILY 08/25/21 11/11/23 mcg/actuation nasal spray,suspension glycine 500 mg capsule 2,000 mg PO HS 11/14/21 11/11/23 multivitamin 1 tablet PO DAILY 11/14/21 11/11/23 magnesium 200 mg tablet 400 mg PO DAILY 09/06/22 11/11/23 albuterol sulfate 90 mcg/actuation 2 puff inhalation Q4-6H PRN 11/11/23 11/11/23 aerosol inhaler Shortness Of Breath Or Wheezing Allergies Allergy/AdvReac Type Severity Reaction Status Date / Time shellfish derived Allergy Mild tingle in Verified 11/11/23 15:46 mouth and throat Sulfa (Sulfonamide Allergy Unknown lip Verified 11/11/23 15:46 Antibiotics) swelling Review of Systems Review of Systems: CONSTITUTIONAL: Denies fever, chills, or sweats. EYES: Denies visual changes, redness, or discharge. ENT: Denies rhinorrhea, congestion, sore throat, or otalgia. CARDIOVASCULAR: Denies chest pain, palpitations, or edema. RESPIRATORY: Denies cough or dyspnea. GASTROINTESTINAL: Denies abdominal pain, nausea, vomiting, or diarrhea. GENITOURINARY: Denies dysuria or hematuria. SKIN: Reports laceration proximal right forearm MUSCULOSKELETAL: Denies back pain, joint pain, or myalgia. NEUROLOGIC: Denies headache, numbness, dizziness, or weakness. PSYCHIATRIC: Denies anxiety or depression. [facility] Past Medical History Medical History Allergies Anxiety Asthma Depression Surgical History Surgical History H/O vasectomy Family History Family History Mother Cerebrovascular accident Father Malignant neoplasm of prostate Bladder cancer Grandparent Breast cancer Mother Hypertension Cerebrovascular accident Carcinoma of colon Father Family history of malignant neoplasm of urinary bladder Social History Social History Smoking status: Current every day smoker Tobacco type: cigars Alcohol intake: never Substance use: never Substance use type: does not use Lack of Transportation: No Lack of Food: Never True Concerned About Future Housing: No Difficulty Paying Gas/Electric Bills: No Difficulty Paying for Meds: No Currently Unemployed: No Education: Bachelor's Degree Difficulty w/ Childcare or Family Care: No Living arrangements: with family Spiritual care concerns: No Exam Narrative: GENERAL: Well-appearing, well-nourished, and in no acute distress. HEAD: Normocephalic, atraumatic. EYES: PERRLA and EOMI. ENT: Nares clear, no rhinorrhea or epistaxis. Mucous membranes moist. Oropharynx without tonsillar hypertrophy exudate or other lesions. Bilateral TMs pearly [place]
== END 2023-11-11 17:13 | disposition home or self-care (01) ==
PROVIDERS: Emergency Provider Nurse Practitioner; PCP Family Medicine
DX: S51.811A Laceration without foreign body of right forearm, initial encounter (principal); W45.8XXA Other foreign body or object entering through skin, initial encounter; Z23 Encounter for immunization; F17.290 Nicotine dependence, other tobacco product, uncomplicated; J45.909 Unspecified asthma, uncomplicated; F41.9 Anxiety disorder, unspecified; F32.A Depression, unspecified; Z79.82 Long term (current) use of aspirin
CPT/HCPCS: 12002; 90471; 90715; 99213; G0463

== ENCOUNTER 2024-03-12 07:40 | Outpatient (CLI) | payer MEDICARE, BC, SELFPAY ==
[2024-03-12 18:52] LABS: Basophils Absolute Auto 0.1 K/mm3 (0.0-0.1); Eosinophils Absolute Auto 0.2 K/mm3 (0-0.3); Eosinophils Percent Auto 2.7 % (0-4.4); Immature Granulocyte Absolute 0.02 K/mm3 (0.00-0.031); Immature Granulocyte Percent A 0.3 % (0-0.5); Lymphocytes Absolute Auto 1.55 K/mm3 (0.9-3.2); Lymphocytes Percent Auto 25.7 % (18.3-44.2); Mean Corpuscular HGB Conc 31.9 g/dl (32-36); Mean Corpuscular Hemoglobin 31.8 pg (26-34); Mean Corpuscular Volume 99.8 fl (80-100); Mean Platelet Volume 10.8 fl (7.4-10.4); Monocytes Absolute Auto 0.5 K/mm3 (0.1-0.6); Monocytes Percent Auto 8.1 % (2.6-8.5); Neutrophils Absolute Auto 3.8 K/mm3 (1.3-6.7); Neutrophils Percent Auto 62.2 % (45.5-73.1); Platelet Count Result 203 k/mm3 (150-375); Red Blood Count 4.71 M/mm3 (4.6-6.20); Red Cell Distribution Width 13.6 % (11.5-14.5)
[2024-03-12 21:09] LABS: Alanine Aminotransferase 23 U/L (6-50); Albumin Level 4.2 g/dL (3.5-5.1); Alkaline Phosphatase 73 U/L (38-126); Anion Gap 2 mmol/L (4-12); Aspartate Amino Transferase 70 U/L (17-59); Bilirubin,Total 0.8 mg/dL (0.2-1.3); Blood Urea Nitrogen 18 mg/dL (9-20); Calcium 8.9 mg/dL (8.4-10.2); Carbon Dioxide 34 mmol/L (22-30); Chloride 104 mmol/L (98-107); Cholesterol 234 mg/dL (0-200); Estimated Glomerular Filt Rate > 60; Glucose 95 mg/dL (65-110); HDL Direct 34 mg/dL; Potassium 4.3 mmol/L (3.4-5.0); Sodium 140 mmol/L (137-145); Triglycerides 193 mg/dL (<150)
[2024-03-12 21:20] LABS: LDL Cholesterol Direct 138 mg/dL
== END 2024-03-12 07:41 | disposition home or self-care (01) ==
PROVIDERS: PCP Nurse Practitioner Adult Health; Visit Provider Nurse Practitioner Adult Health
DX: E78.5 Hyperlipidemia, unspecified (principal)
CPT/HCPCS: 36415; 80053; 80061; 85025

== ENCOUNTER 2024-09-16 07:47 | Outpatient (CLI) | payer MEDICARE, OTHER, SELFPAY ==
[2024-09-16 20:17] LABS: Alanine Aminotransferase 23 U/L (6-50); Albumin Level 4.4 g/dL (3.5-5.1); Alkaline Phosphatase 81 U/L (38-126); Anion Gap 8 mmol/L (4-12); Aspartate Amino Transferase 60 U/L (17-59); Bilirubin,Total 0.6 mg/dL (0.2-1.3); Blood Urea Nitrogen 20 mg/dL (9-20); Calcium 9.3 mg/dL (8.4-10.2); Carbon Dioxide 30 mmol/L (22-30); Chloride 104 mmol/L (98-107); Cholesterol 226 mg/dL (0-200); Estimated Glomerular Filt Rate 58; Glucose 100 mg/dL (65-110); HDL Direct 34 mg/dL; Sodium 142 mmol/L (137-145); Total Protein 7.9 g/dL (6.3-8.2); Triglycerides 258 mg/dL (<150)
[2024-09-16 20:28] LABS: LDL Cholesterol Direct 96 mg/dL
[2024-09-16 20:46] LABS: Prostate Specific Antigen 2.1 ng/mL (< OR = 4.0)
== END 2024-09-16 07:48 | disposition home or self-care (01) ==
PROVIDERS: PCP Nurse Practitioner Adult Health; Visit Provider Nurse Practitioner Adult Health
DX: E78.5 Hyperlipidemia, unspecified (principal); Z12.5 Encounter for screening for malignant neoplasm of prostate
CPT/HCPCS: 36415; 80053; 80061; 84153; G0103

== ENCOUNTER 2025-03-22 08:50 | Emergency (ER) | payer MEDICARE, OTHER, SELFPAY ==
[2025-03-22 08:56] VITALS: BP 154/89; PULSE 91; RESP 20; TEMP 36.7; O2SAT 100
--- NOTE | 2025-03-22 09:33 | ED.EAR ---
HPI - Ear Problem General Chief complaint: Ear Stated complaint: Ears Time Seen by Provider: 03/22/25 09:24 Source: patient and RN notes reviewed Mode of arrival: ambulatory Limitations: no limitations History of Present Illness HPI Narrative: 74 year old male patient presents today complaining of bilateral hearing loss after shooting at the [employer] range 2 days ago. States he used some foam earplugs instead of his normal earmuffs and after his outing at the range, he was hearing static in his ears that progressively improved through the day. Yesterday, he felt that his ears were more clogged or muffled like he may have pushed wax down into the canals. He has tried Dobrox without improvement. Related Data Home Medications ?Medication ?Instructions ?Recorded ?Confirmed ?Last Taken ?Type clonazepam 0.5 mg tablet (Klonopin) 0.5 mg PO DAILY 07/28/19 09/16/24 09/22/19 History mirtazapine 30 mg tablet (Remeron) 30 mg PO DAILY 07/28/19 09/16/24 09/22/19 History desvenlafaxine succinate 100 mg 100 mg PO DAILY 08/25/21 09/16/24 Unknown History tablet,extended release 24 hr (Pristiq) multivitamin 1 tablet PO DAILY 11/14/21 09/16/24 Unknown History omega BYMOUTH 11/20/23 09/16/24 Unknown History Allergies Allergy/AdvReac Type Severity Reaction Status Date / Time shellfish derived Allergy Mild tingle in Verified 03/22/25 09:11 mouth and throat Sulfa (Sulfonamide Allergy Unknown lip Verified 03/22/25 09:11 Antibiotics) swelling PMFSH Past Medical History Medical History Anxiety Depression Asthma Allergies Surgical History Surgical History H/O vasectomy Family History Family History Mother Cerebrovascular accident Father Malignant neoplasm of prostate Bladder cancer Grandparent Breast cancer Mother Hypertension Cerebrovascular accident Carcinoma of colon Father Family history of malignant neoplasm of urinary bladder Social History Social History Smoking status: Current every day smoker Tobacco type: cigars Alcohol intake: never Substance use: never Substance use type: does not use Lack of Transportation: No Lack of Food: Never True Concerned About Future Housing: No Difficulty Paying Gas/Electric Bills: No Difficulty Paying for Meds: No Currently Unemployed: No Education: Bachelor's Degree Difficulty w/ Childcare or Family Care: No Living arrangements: with family Spiritual care concerns: No Comments At time of signature, I have reviewed and agree with nursing past medical, surgical, social and family history unless otherwise noted. Please see nursing chart for further information. There is no relevant family history pertinent to the presenting complaint Exam Narrative: GENERAL: Well-appearing, well-nourished, and in no acute distress. HEAD: Normocephalic, atraumatic. EYES: EOMI. No redness or drainage. Conjunctivae normal. ENT: Mucous membranes pink and moist. Nares clear. No rhinorrhea. TMs normal bilaterally. Bilateral canals normal. NECK: Normal AROM. Supple. EXTREMITIES: Normal range of motion. SKIN: Warm, dry, no rash. Capillary refill normal. NEURO: No focal deficits. Alert and oriented x3. Gait steady. PSYCH: Normal affect. No signs of depression or anxiety. Course Course Level of Care: Express Care Visit Vital Signs Vital signs: Vital Signs Temperature 98.1 F 03/22/25 08:56 Pulse Rate 91 03/22/25 08:56 Respiratory Rate 20 03/22/25 08:56 Blood Pressure 154/89 H 03/22/25 08:56 Pulse Oximetry 100 03/22/25 08:56 Oxygen Delivery Room Air 03/22/25 08:56 Temperature 98.1 F 03/22/25 08:56 Pulse Rate 91 03/22/25 08:56 Respiratory Rate 20 03/22/25 08:56 Blood Pressure 154/89 H 03/22/25 08:56 Pulse Oximetry 100 03/22/25 08:56 Oxygen Delivery Room Air 03/22/25 08:56 Reviewed MDM MDM Narrative Medical decision making narrative: 74 year old male patient presents today complaining of 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 States he used some foam earplugs instead of his normal earmuffs and after his outing at the range, he was hearing static in his ears that progressively improved through the day. Yesterday, he felt that his ears were more clogged or muffled like he may have pushed wax down into the canals. He has tried Dobrox without improvement. Patient's exam is normal. Hearing loss likely due to loud noises at the shooting range. Recommend watchful waiting for a few days with ENT follow up this week if symptoms do not start to improve. Patient agrees with plan. VSS. Anticipatory guidance given. Differential Diagnosis Differential Diagnosis: Cerumen impaction, AOM, serous effusion, ruptured TM, hearing loss due to loud noise. Critical Care Time Critical Care Time Critical Care Time: No Discharge Plan Discharge Clinical Impression: Hearing loss Qualifiers: Hearing loss type: unspecified Laterality: bilateral Qualified Code(s): H91.93 - Unspecified hearing loss, bilateral Patient Disposition: Home Condition: Stable Additional Instructions: If your hearing does not return to baseline in the next few days, please call and schedule a follow up visit with ENT. Patient Language: Estonian Prescriptions: No Action omega BYMOUTH Rx Instructions: OTC desvenlafaxine succinate [Pristiq] 100 mg tablet extended release 24 hr 100 mg PO DAILY multivitamin [A To Z Multivitamin] Tablet 1 tablet PO DAILY clonazepam [Klonopin] 0.5 mg tablet 0.5 mg PO DAILY mirtazapine [Remeron] 30 mg tablet 30 mg PO DAILY Follow-up/Referrals: Juan Aviles MD [Physician, Ear, Nose, Throat] Betty Nielsen APRN [Primary Care Provider, Family Practice] Time of Disposition: 09:32
== END 2025-03-22 09:36 | disposition home or self-care (01) ==
PROVIDERS: Emergency Provider Nurse Practitioner; PCP Nurse Practitioner Adult Health
DX: H91.93 Unspecified hearing loss, bilateral (principal); F17.290 Nicotine dependence, other tobacco product, uncomplicated; J45.909 Unspecified asthma, uncomplicated; F41.9 Anxiety disorder, unspecified; F32.A Depression, unspecified
CPT/HCPCS: 99211; G0463

== ENCOUNTER 2025-03-31 12:22 | Outpatient (CLI) | payer MEDICARE, OTHER, SELFPAY | END 2025-03-31 12:23 | disposition home or self-care (01) | LOC: ANHAUDIO 12:23 | PROVIDERS: PCP Nurse Practitioner Adult Health; Visit Provider Otolaryngology | DX: H90.3 Sensorineural hearing loss, bilateral (principal); H93.13 Tinnitus, bilateral | CPT/HCPCS: 92557; 92567 ==